=== PATIENT | female | born 1995 | race Caucasian/White ===

== ENCOUNTER 2016-08-02 21:10 | Emergency (ER) | payer OTHER ==
[2016-08-02 22:24] LABS: SPECIFIC GRAVITY 1.015 (1.001-1.030); URINE BILIRUBIN NEGATIVE (NEGATIVE); URINE BLOOD NEGATIVE (NEGATIVE); URINE GLUCOSE (UA) NEGATIVE (NEGATIVE); URINE LEUKOCYTE ESTERASE NEGATIVE (NEGATIVE); URINE NITRITE POSITIVE (NEGATIVE); URINE PROTEIN NEGATIVE (NEGATIVE); URINE UROBILINOGEN NORMAL (0-1 mg/dl)
[2016-08-02 22:28] LABS: URINE APPEARANCE SL CLOUDY; URINE COLOR YELLOW
[2016-08-02 22:44] LABS: URINE BACTERIA 4+
[2016-08-02 22:46] LABS: BASO % 0.5 % (0.2-1.0); EOS # 0.2 (0.0-0.5); EOS % 2.8 % (0.9-2.9); HEMATOCRIT 38.2 % (37.0-47.0); HEMOGLOBIN 13.1 gm/l (12.0-16.0); IMM NEUT% 0.1 % (0-1); LYMPH # 1.9 (1.0-4.8); LYMPH % 25.5 % (15-45); MEAN CELL VOLUME 87.4 fl (81.0-99.0); MEAN CORPUSCULAR HGB CONC 34.3 g/dl (33.0-37.0); MEAN PLATELET VOLUME 9.1 fl (7.4-10.4); MONO # 0.4 (0.0-0.8); MONO % 5.5 % (4-12); NEUT % 65.6 % (43-75); PLATELET COUNT 284 K/mm3 (130-400)
[2016-08-02] MEDS ORDERED: AZITHROMYCIN 250 MG TABLET ONE (22:57)
[2016-08-02] MEDS ORDERED: CEFTRIAXONE 1 GRAM DUPLEX 50 ML IV ONE (22:57)
[2016-08-02 23:02] LABS: ALB/GLOB RATIO 1.7 (>1.0); CALCIUM 10.4 mg/dL (8.6-10.3); MAGNESIUM 2.2 mg/dL (1.9-2.7)
[2016-08-03] MEDS ORDERED: ACETAMINOPHEN 325 MG TABLET ONE (00:50)
--- NOTE | 2016-08-03 08:02 | US ---
LIMITED ABDOMINAL ULTRASOUND HISTORY: Right lower quadrant pain. Limited sonography of the right lower quadrant performed, with graded compression. APPENDIX: Structure with gut signature and peristalsis is identified at the right lower quadrant measuring up to 8.6 mm in width. This does not clearly terminate within the images provided FREE FLUID: None. REGIONAL BOWEL: Normal peristalsis. Compressible. REGIONAL MASS EFFECT: None. IMPRESSION: Peristalsing bowel, appendix not definitively visualized; no free fluid or regional mass effect. If there is continued concern for appendicitis, consider CT imaging. Preliminary report relayed to the Emergency Medicine medical service by Dr. Hobbs on 08/03/2016 at 0038 hours.
--- NOTE | 2016-08-03 08:03 | US ---
Exam: Complete obstetric ultrasound less than 14 weeks COMPARISON: None INDICATION: Right lower quadrant pain, nausea and vomiting, . Findings: Transabdominal and transvaginal obstetric ultrasound less than 14 weeks was obtained. Real-time sonographic imaging demonstrated a single live intrauterine with a heart rate of 185 bpm. Mean sac diameter of 1.4 cm correlates with a gestational age of 5 weeks 4 days. Drake-rump length of 2 mm is out of range for dating. Yolk sac is identified. Slightly heterogeneous appearance of the decidual reaction is noted without discrete hemorrhage. Right ovary measures 1.7 x 1.1 x 1.9 cm and left ovary measures 3.3 x 1.8 x 1.8 cm. There is no cystic or solid ovarian mass. Blood flow is present within both ovaries. There is no significant free fluid in the cul-de-sac. IMPRESSION: Single live intrauterine of approximate 5 weeks 4 days gestation with a heart rate of 185 bpm. Preliminary report transmitted to the emergency department from [employer] at 0038 hours 08/03/2016.
[2016-08-04 15:01] LABS: CHLAMYDIA BD Negative (Negative); N.GONORRHOEAE BD Negative (Negative); SOURCE Urine (())
== END 2016-08-03 00:59 | disposition home or self-care (01) ==
LOC: ED 21:10
DX: O46.91 Antepartum hemorrhage, unspecified, first trimester (principal); O23.41 Unspecified infection of urinary tract in pregnancy, first trimester; Z3A.08 8 weeks gestation of pregnancy
CPT/HCPCS: 83690; 87491; 87591; 84702; 85025; 87086; 80053; 87186; 83735; 81001; 87077; 76817; 76801; 76705; 99284 ×2; 96365; 96366; A9270 ×2; J0696